=== PATIENT | female | born 1960 ===

== ENCOUNTER 2018-09-20 06:03 | Day surgery (SDC) | payer BC ==
[2018-09-20 07:06] VITALS: BMI 31.0
[2018-09-20] MEDS ORDERED: Midazolam 2 MG/2 ML VIAL ONE (08:19)
[2018-09-20] MEDS: ceFOXitin IV 1 gm/100 ml in NS 2 GM/200 ML BAG ONE ×2 (08:19→08:20)
[2018-09-20] MEDS ORDERED: Propofol 10 mg/ml Inj (20 ML) ONE (08:23)
[2018-09-20] MEDS ORDERED: HYDROmorphone 0.5 mg/0.5 ml ISec IVP PRN (08:56)
[2018-09-20 10:26] VITALS: O2SAT 99
[2018-09-20 13:00] VITALS: BP 115/63; PULSE 58; RESP 18; TEMP 97.9
--- NOTE | 2018-09-21 06:08 | OP ---
PROCEDURE DATE: 09/20/2018 PREOPERATIVE DIAGNOSIS: A 57-year-old 2, para 2 with postmenopausal bleeding, endometrial thickening. POSTOPERATIVE DIAGNOSIS: A 57-year-old 2, para 2 with postmenopausal bleeding, endometrial thickening, endometrial polyposis. SURGEON: Jeffy Pollack MD ANESTHESIA: General anesthesia. ANESTHESIOLOGIST: Mejia Dominguez MD COMPLICATIONS: None. PROCEDURE PERFORMED: MyoSure, dilatation and curettage, hysteroscopy. DESCRIPTION OF PROCEDURE: After informed consent was obtained, the patient was brought to the operating room and placed on the table where general anesthesia was given. Once the anesthesia was given, the patient was prepped and draped in a normal sterile fashion. Examination of the uterus revealed it to be 8 weeks' size. No pelvic or adnexal masses. Anterior lip of the cervix was grasped with a tenaculum. Gentle dilatation of the cervix was done and then hysteroscope was introduced and found there was a polyp on the posterior wall of the uterus. Pictures were taken. After that the decision was to use a MyoSure. MyoSure was used to remove the polyp and it was sent to the pathology. After that, sharp curettage of the endometrium was done. ECC was done and sent to the pathology. The hysteroscope was then introduced, no polyp was found. EBL was 20 mL. Deficit was 40 mL. The patient tolerated the procedure well. Lap, sponge, and instrument counts were correct x2 at the end of the case. Jeffy Pollack MD
== END 2018-09-20 12:51 | disposition home or self-care (01) ==
LOC: C.SDS 06:03
PROVIDERS: ATTEND Obstetrics & Gynecology
DX: N95.0 Postmenopausal bleeding (principal); N84.0 Polyp of corpus uteri; R93.89 Abnormal findings on diagnostic imaging of other specified body structures
CPT/HCPCS: 58558; 88305; J1170; J2250; J2405; J2704; J3010